=== PATIENT | female | born 1960 | race Two or more races ===

== ENCOUNTER 2016-09-11 13:38 | Emergency (ER) | payer OTHER ==
[~2016-09-11] VITALS: Ht 160 cm; Wt 68.0 kg
[~2016-09-11 13:38] MED LIST: CEPH250C PO
[2016-09-11] MEDS ORDERED: SODIUM CHLORIDE 0.9% 1,000 ML IV ONE (15:59)
[2016-09-11] MEDS ORDERED: ONDANSETRON HCL 4 MG/2 ML VIAL IV ONE (16:00)
[2016-09-11] MEDS ORDERED: MORPHINE SULF INJ 2 MG/ML SYRINGE 1ML IV ONE (16:00)
[2016-09-11] MEDS ORDERED: cefTRIAXone 1GM/50ML D5W 50 ML IV ONE (16:15)
[2016-09-11] MEDS ORDERED: cefTRIAXone SOD 1,000 MG VL IV ONE (16:15)
[2016-09-11 17:34] LABS: Basophils # (auto) 0 uL; Basophils % (auto) 0.2 % (0.0-2.0); Eosinophils # (auto) 0.1 uL; Eosinophils % (auto) 1.2 % (0.0-7.0); Hematocrit 44.5 % (36.0-46.0); Hemoglobin 15.2 g/dL (12.2-16.2); Lymphocytes # (auto) 2.7 uL; Lymphocytes % (auto) 33.3 % (10.0-50.0); Mean Corpuscular Hemoglobin 30.7 pg (28.0-32.0); Mean Corpuscular Hgb Conc. 34.2 g/dL (32.0-36.0); Mean Corpuscular Volume 89.8 fL (80.0-100.0); Mean Platelet Volume 8.3 fL (7.4-10.4); Monocytes # (auto) 0.4 uL; Monocytes % (auto) 4.4 % (0.0-12.0); Neutrophils % (auto) 60.9 % (37.0-80.0); Platelet Count (auto) 357 10^3/uL (140-450); Red Cell Distribution Width 11.9 % (11.6-16.0); White Blood Cell 8.2 10^3/uL (4.4-10.8)
[2016-09-11 17:38] LABS: Albumin 3.7 g/dL (3.4-5.0); Calcium 8.3 mg/dL (8.5-10.1); Potassium 3.6 mmol/L (3.5-5.1)
[2016-09-11 17:39] LABS: Partial Thromboplastin Time 29.2 sec (22.64-33.71); Prothrombin Time 10.9 sec (9.37-12.3)
[2016-09-11 17:40] VITALS: BP 102/74
[2016-09-11 17:41] LABS: Bilirubin, Total 0.8 mg/dL (0.2-1.0); Total Protein 7.9 g/dL (6.4-8.2)
[2016-09-11 17:46] LABS: B-Type Natriuretic Peptide 19.09 pg/mL (0-100)
[2016-09-11 18:05] LABS: Temperature: 22.9 C (20.0-25.0)
== END 2016-09-11 18:06 | disposition home or self-care (01) ==
LOC: ER 14:03
DX: B02.29 Other postherpetic nervous system involvement (principal); E78.5 Hyperlipidemia, unspecified; M79.1 Myalgia; R06.02 Shortness of breath
CPT/HCPCS: 36415; 71010; 80053; 83880; 85025; 85379; 85610; 85730; 87040; 93005; 96365; 96375; 99285; J0696; J2270; J2405; J7030

== ENCOUNTER 2018-11-05 14:44 | Inpatient (IN) | payer MEDICAID, OTHER ==
[~2018-11-05] VITALS: Ht 160 cm; Wt 79.4 kg
[2018-11-05 15:47] LABS: INR 0.94 (0.9-1.15); Partial Thromboplastin Time 27.2 sec (23.64-32.05)
[2018-11-05 15:51] LABS: Alanine Aminotransferase 47 U/L (13-56); Albumin 3.5 g/dL (3.4-5.0); Anion Gap 6 (5-15); Aspartate Aminotransferase 32 U/L (15-37); BUN/Creatinine Ratio 17.7; Blood Urea Nitrogen 14 mg/dL (7-18); Calcium 8.1 mg/dL (8.5-10.1); Carbon Dioxide 27 mmol/L (21-32); Chloride 112 mmol/L (98-107); GFR African American 96 mL/min; GFR Non-African American 80 mL/min; Glucose 104 mg/dL (74-106); Magnesium 2.4 mg/dL (1.6-2.6); Potassium 3.3 mmol/L (3.5-5.1); Sodium 145 mmol/L (136-145)
[2018-11-05 15:56] LABS: Alkaline Phosphatase 71 U/L (45-117); Bilirubin, Total 0.6 mg/dL (0.2-1.0); Total Protein 7.2 g/dL (6.4-8.2)
[2018-11-05 16:00] LABS: Basophils # (auto) 0.1 uL; Basophils % (auto) 0.9 % (0.0-2.0); Eosinophils # (auto) 0.2 uL; Eosinophils % (auto) 2.8 % (0.0-7.0); Hematocrit 41.1 % (36.0-46.0); Hemoglobin 14.1 g/dL (12.2-16.2); Lymphocytes # (auto) 2.4 uL; Lymphocytes % (auto) 32.8 % (10.0-50.0); Mean Corpuscular Hemoglobin 30.6 pg (28.0-32.0); Mean Corpuscular Hgb Conc. 34.4 g/dL (32.0-36.0); Mean Corpuscular Volume 88.7 fL (80.0-100.0); Monocytes # (auto) 0.5 uL; Monocytes % (auto) 6.4 % (0.0-12.0); Neutrophils # (auto) 4.2 uL; Neutrophils % (auto) 57.1 % (37.0-80.0); Platelet Count (auto) 324 10^3/uL (140-450); Red Blood Cells 4.63 10^6/uL (4.0-5.20); Red Cell Distribution Width 12.1 % (11.8-14.3); White Blood Cell 7.3 10^3/uL (4.4-10.8)
[2018-11-05] MEDS: SODIUM CHLORIDE 0.9% 1,000 ML IV SCH (18:47)
[2018-11-05] MEDS ORDERED: LACTULOSE 20Gm/30ML SOLN PO PRN (19:00)
[2018-11-05] MEDS ORDERED: NITROGLYCERIN 0.4 MG SL TAB SL PRN (19:00)
[2018-11-05] MEDS ORDERED: MORPHINE SULF INJ 2 MG/ML SYRINGE 1ML IV PRN (19:00)
[2018-11-05] MEDS ORDERED: PROMETHAZINE HCL 25 MG/ML 1ML IV PRN (19:00)
[2018-11-05] MEDS ORDERED: LABETALOL HCL 5 MG/ML ML 20ML VIAL IV PRN (19:00)
[2018-11-05] MEDS ORDERED: POTASSIUM EFFERVESENT TAB 25 MEQ PO ONE (19:00)
[2018-11-05] MEDS ORDERED: TEMAZEPAM 15 MG CAP PO PRN (19:00)
[2018-11-05 19:37] LABS: Folate (Folic Acid) 16.67 ng/mL (5.38-24)
[2018-11-05 20:45] VITALS: BP 134/77
--- NOTE | 2018-11-05 20:45 | NUR ---
Telemetry admit from ER Patient admitted to Telemetry unit and oriented to primary RN, unit, room, bed, and unit policies regarding patient care and visiting hours. Patient now on continuous telemetry monitoring, tele box # [id number] and telemetry reading on arrival to unit is sinus rhythm. Patient weighed by bedscale and encouraged to call if they need something. Patient able to walk to bed by herself, no change in gait. Bed is in lowest position and locked. Call light within reach. Board updated. All questions and concerns addressed, patient verbalized understanding.
[2018-11-05] MEDS: ATORVASTATIN 20 MG TAB PO SCH (21:26)
[2018-11-05] MEDS: traMADol HCL 50 MG TAB PO PRN (21:26)
[2018-11-05 21:48] VITALS: BP 134/77
[2018-11-05 23:27] LABS: Urine Bacteria NONE SEEN /hpf (None Seen); Urine Blood Negative /uL (Negative); Urine Specific Gravity 1.006 (1.001-1.035); Urine WBC 48 /hpf (0 - 5)
[2018-11-05 23:48] LABS: Alcohol, Urine < 3.0 mg/dL (0-5); Amphetamine Screen, Urine NEGATIVE (NEGATIVE); Barbiturate Scree,Urine NEGATIVE (NEGATIVE); Benzodiazephine Screen, Urine NEGATIVE (NEGATIVE); Cannabinoid Screen, Urine NEGATIVE (NEGATIVE); Cocaine Screen, Urine NEGATIVE (NEGATIVE); Phencyclidine Screen, Urine NEGATIVE (NEGATIVE)
[2018-11-05 23:57] LABS: Opiate Scree,Urine NEGATIVE (NEGATIVE)
[2018-11-06] MEDS ORDERED: IBUP600T27 PO (00:34)
[2018-11-06] MEDS ORDERED: GABA100C9 PO (00:34)
[2018-11-06] MEDS ORDERED: ATOR10TA PO (00:34)
[2018-11-06] MEDS: ACETAMINOPHEN 500 MG TAB PO PRN ×2 (02:40→03:38)
[2018-11-06] MEDS: traMADol HCL 50 MG TAB PO PRN ×3 (02:40→21:38)
[2018-11-06 04:53] VITALS: BP 114/66
[2018-11-06] MEDS: SODIUM CHLORIDE 0.9% 1,000 ML IV SCH ×2 (06:22→20:34)
--- NOTE | 2018-11-06 07:40 | NUR ---
OPENING SHIFT NOTE: Received report from NOC RNRoman. Assumed care of patient. Patient resting in bed, denies pain. Bed in lowest position, rails x2 up and call light within reach. Updated on plan of care. Will continue to monitor.
[2018-11-06 07:52] VITALS: BP 103/62
[2018-11-06] MEDS: PANTOPRAZOLE 40 MG TAB PO SCH (09:57)
[2018-11-06] MEDS: ASPirin 81 mg TAB PO SCH (09:57)
[2018-11-06] MEDS: ENOXAPARIN SOD 40 MG/0.4 ML SYRINGE SC SCH (09:58)
--- NOTE | 2018-11-06 11:55 | NUR ---
MD: Dr Massey at bedside.
[2018-11-06 12:00] VITALS: BP 125/67
--- NOTE | 2018-11-06 15:45 | NUR ---
ULTRASOUND: U/S tech at bedside. Study completed.
[2018-11-06 17:00] VITALS: BP 112/75
--- NOTE | 2018-11-06 19:11 | NUR ---
CLOSING SHIFT NOTE: Report given to NOC RNRoman. Endorsed care of patient.
--- NOTE | 2018-11-06 19:26 | NUR ---
Opening Shift Note Assumed care of patient, awake and alert x 4. No S/S of distress/SOB. Bed is in lowest position and locked. Call light within reach. Board updated. Tele box number matches monitor and leads are in correct placement. NS infusing at 8- ml/hr. Instructed on POC and to call for assist PRN, will continue to monitor for changes Q1hr and PRN.
[2018-11-06] MEDS ORDERED: LORazepam 2MG/ML-1ML VIAL IV PRN (20:15)
[2018-11-06 21:37] VITALS: BP 127/69
[2018-11-06] MEDS: ATORVASTATIN 20 MG TAB PO SCH (21:37)
[2018-11-07] MEDS: SODIUM CHLORIDE 0.9% 1,000 ML IV SCH ×3 (04:19→23:36)
[2018-11-07 04:52] VITALS: BP 122/83
[2018-11-07 06:08] LABS: Basophils # (auto) 0.1 uL; Basophils % (auto) 0.8 % (0.0-2.0); Eosinophils # (auto) 0.2 uL; Eosinophils % (auto) 3.5 % (0.0-7.0); Hematocrit 42.5 % (36.0-46.0); Hemoglobin 14.3 g/dL (12.2-16.2); Lymphocytes # (auto) 2.5 uL; Lymphocytes % (auto) 36.8 % (10.0-50.0); Mean Corpuscular Hemoglobin 30.6 pg (28.0-32.0); Mean Corpuscular Hgb Conc. 33.6 g/dL (32.0-36.0); Mean Corpuscular Volume 91.1 fL (80.0-100.0); Monocytes # (auto) 0.4 uL; Monocytes % (auto) 5.7 % (0.0-12.0); Neutrophils # (auto) 3.6 uL; Neutrophils % (auto) 53.2 % (37.0-80.0); Platelet Count (auto) 277 10^3/uL (140-450); Red Blood Cells 4.66 10^6/uL (4.0-5.20); Red Cell Distribution Width 12.2 % (11.8-14.3); White Blood Cell 6.7 10^3/uL (4.4-10.8)
[2018-11-07 06:25] LABS: Potassium 3.6 mmol/L (3.5-5.1)
[2018-11-07 06:37] LABS: BUN/Creatinine Ratio 16.2; Calcium 8.1 mg/dL (8.5-10.1); Magnesium 2.4 mg/dL (1.6-2.6)
--- NOTE | 2018-11-07 07:40 | NUR ---
OPENING SHIFT NOTE PATIENT AWAKE LAYING IN BED, DENIES SOB, PAIN OR ANY DISTRESS. ALERT AND ORIENTED X4 DISCUSSED POC PATIENT VERBALIZED UNDERSTANDING. BED IN LOWEST LOCKED POSITION CALL LIGHT WITHIN REACH WILL CONTINUE TO MONITOR
[2018-11-07 08:51] VITALS: BP 121/70
[2018-11-07] MEDS ORDERED: IOHEXOL 350 MG/ML 100ML IJ ONE (09:37)
[2018-11-07] MEDS: ENOXAPARIN SOD 40 MG/0.4 ML SYRINGE SC SCH (10:14)
[2018-11-07] MEDS: ASPirin 81 mg TAB PO SCH (10:14)
[2018-11-07] MEDS: PANTOPRAZOLE 40 MG TAB PO SCH (10:14)
[2018-11-07 11:56] VITALS: BP 133/82
[2018-11-07 17:00] VITALS: BP 119/65
[2018-11-07] MEDS ORDERED: LORazepam 0.5 MG TAB PO PRN (17:45)
--- NOTE | 2018-11-07 19:06 | NUR ---
END OF SHIFT NOTE PATIENT ALERT AND ORIENTED X4. DENIES ANY PAIN, SOB OR DISTRESS. BED IN LOWEST LOCKED POSITION CALL LIGHT WITH IN REACH ENDORSE CARE TO NOC RN
--- NOTE | 2018-11-07 19:30 | NUR ---
OPENING SHIFT NOTE RECEIVED REPORT FROM DAYSHIFT RN. PATIENT RESTING IN BED TALKING ON PHONE. NO S/S OF DISTRESS OR SOB. NO PAIN NOTED OR REPORTED AT THIS TIME. PATIENT A/O X4, AMBULATORY. UPDATED PATIENT ON POC, VERBALIZED UNDERSTANDING. BED LOCKED IN LOW POSITION, CALL LIGHT WITHIN REACH. WILL CONTINUE TO MONITOR PATIENT Q1HR AND PRN.
[2018-11-07 23:47] VITALS: BP 118/72
[2018-11-08 05:14] VITALS: BP 114/84
[2018-11-08] MEDS: SODIUM CHLORIDE 0.9% 1,000 ML IV SCH (06:28)
--- NOTE | 2018-11-08 07:35 | NUR ---
OPENING SHIFT NOTE PATIENT LAYING IN BED WITH EYES CLOSED, CHEST RISE AND FALL VISUALIZED SHOWING NO S/S OF DISTRESS OR SOB. BED IN LOWEST LOCKED POSITION CALL LIGHT WITHIN REACH. BOARD UPDATED . WILL CONTINUE TO MONITOR
[2018-11-08 08:24] VITALS: BP 139/86
[2018-11-08] MEDS: ENOXAPARIN SOD 40 MG/0.4 ML SYRINGE SC SCH (09:37)
[2018-11-08] MEDS: PANTOPRAZOLE 40 MG TAB PO SCH (09:37)
[2018-11-08] MEDS ORDERED: CITALOPRAM HYDROBR 20 MG TAB PO SCH (10:00)
[2018-11-08 12:36] VITALS: BP 125/75
[2018-11-08 12:41] VITALS: BP 125/75
--- NOTE | 2018-11-08 13:28 | NUR ---
DISCHARGE NOTE PATIENT ALERT AND ORIENTED X4, FAMILY AT BEDSIDE. ALL DISCHARGE INSTRUCTIONS GIVEN ALL QUESTIONS AND CONCERNS ADDRESSED/ANSWERED. IV REMOVED CATHETER INTACT, PRESSURE DRESSING APPLIED PATIENT TOLERATED WELL. PATIENT DENIES ANY PAIN, SOB OR ANY DISTRESS. PATIENT AMBULATES WITH STEADY GAIT. ASSISTED OUT TO PERSONAL VEHICLE USING WHEELCHAIR.
== END 2018-11-08 13:26 | disposition home or self-care (01) | DRG 47 ==
LOC: ER 14:44 → TELE 14:45 → TELE-WESTW 20:30
PROVIDERS: ADMIT Internal Medicine; ATTEND Internal Medicine
DX: G45.9 Transient cerebral ischemic attack, unspecified (principal); E78.5 Hyperlipidemia, unspecified; E87.6 Hypokalemia; M19.90 Unspecified osteoarthritis, unspecified site; H02.402 Unspecified ptosis of left eyelid; F41.9 Anxiety disorder, unspecified; R29.810 Facial weakness; Z86.19 Personal history of other infectious and parasitic diseases; Z79.899 Other long term (current) drug therapy
CPT/HCPCS: 36415; 70450; 70496; 70551; 71046; 76604; 80048; 80053; 80061; 80307; 81001; 82550; 82607; 82746; 83036; 83735; 84443; 84484; 85025; 85610; 85652; 85730; 93005; 93306; 93886; 94761; 96360; 97163; G0378

== ENCOUNTER 2022-01-29 21:23 | Emergency (ER) | payer MEDICAID ==
[~2022-01-29] VITALS: Ht 160 cm; Wt 73.0 kg
[~2022-01-29 21:23] MED LIST changes: +ATOR10TA PO; -CEPH250C PO; +GABA100C9 PO; +IBUP600T27 PO
[2022-01-30 00:30] VITALS: BP 138/82
[2022-01-30 00:42] LABS: Basophils # (auto) 0.1 10 ^3/uL (0-0.2); Basophils % (auto) 1.2 % (0.0-2.0); Eosinophils # (auto) 0.1 10 ^3/uL (0-0.8); Eosinophils % (auto) 0.7 % (0.0-7.0); Hematocrit 43.6 % (36.0-46.0); Hemoglobin 15.5 g/dL (12.2-16.2); Lymphocytes # (auto) 2.9 10 ^3/uL (0.4-5.4); Lymphocytes % (auto) 31.8 % (10.0-50.0); Mean Corpuscular Hgb Conc. 35.5 g/dL (32.0-36.0); Mean Corpuscular Volume 87.3 fL (80.0-100.0); Monocytes # (auto) 0.4 10 ^3/uL (0-1.3); Monocytes % (auto) 4.6 % (0.0-12.0); Neutrophils # (auto) 5.6 10 ^3/uL (1.6-8.6); Neutrophils % (auto) 61.7 % (37.0-80.0); Nucleated Red Blood Cells % 0.5 %; Red Cell Distribution Width 12.3 % (11.8-14.3); White Blood Cell 9.1 10^3/uL (4.4-10.8)
[2022-01-30] MEDS ORDERED: KETOROLAC TROMETH 30 MG/ML 1ML VIAL IM ONE (00:45)
[2022-01-30] MEDS ORDERED: methylPREDNISolone SOD SUCC 125 MG/2 ML VL IM ONE (00:45)
[2022-01-30 01:08] LABS: BUN/Creatinine Ratio 16.5; Calcium 9.1 mg/dL (8.5-10.1); Potassium 3.9 mmol/L (3.5-5.1)
[2022-01-30 01:11] LABS: Bilirubin, Total 0.5 mg/dL (0.2-1.0); Total Protein 7.8 g/dL (6.4-8.2)
[2022-01-30] MEDS ORDERED: DICL75TA2 PO (01:52)
== END 2022-01-30 02:41 | disposition home or self-care (01) ==
LOC: ER 21:23
DX: G44.209 Tension-type headache, unspecified, not intractable (principal); M43.6 Torticollis; E78.5 Hyperlipidemia, unspecified; I10 Essential (primary) hypertension; E11.9 Type 2 diabetes mellitus without complications; Z86.73 Personal history of transient ischemic attack (TIA), and cerebral infarction without residual deficits; Z79.1 Long term (current) use of non-steroidal anti-inflammatories (NSAID); Z79.899 Other long term (current) drug therapy
CPT/HCPCS: 36415; 70450; 71045; 72125; 80053; 84484; 85025; 93005; 96372; 99285; J1885; J2930